=== PATIENT | female | born 1955 | race Two or more races ===

== ENCOUNTER 2023-05-30 04:16 | Day surgery (SDC) | payer OTHER ==
[2023-05-27 13:42] VITALS: BMI 23.1
[2023-05-30 14:18] VITALS: BP 110/61; PULSE 53; RESP 15
[2023-05-30 14:19] VITALS: TEMP 97.5
== END 2023-05-30 10:00 | disposition home or self-care (01) ==
LOC: JASU-ENDO 04:16
PROVIDERS: ATTEND Internal Medicine Gastroenterology
PROC: 0DJD8ZZ Inspection of Lower Intestinal Tract, Via Natural or Artificial Opening Endoscopic (ICD-10-PCS; principal; 2023-05-30 09:00)
DX: Z12.11 Encounter for screening for malignant neoplasm of colon (principal); K59.89 Other specified functional intestinal disorders; K64.8 Other hemorrhoids; I10 Essential (primary) hypertension; E11.9 Type 2 diabetes mellitus without complications